=== PATIENT | female | born 1975 | race Hispanic/Latino ===

== ENCOUNTER 2017-03-23 21:26 | Observation (INO) | payer MEDICARE ==
[2017-03-23 21:27] VITALS: BMI 23.3
[2017-03-23 21:32] VITALS: BP 144/89; PULSE 80; RESP 16; TEMP 99; O2SAT 100
[2017-03-23] MEDS ORDERED: Sodium Chloride 0.9% 1,000 ML IV STA (21:55)
--- NOTE | 2017-03-23 21:58 | ED PDOC ---
HPI: Abdomen Time Seen by Provider: 03/23/17 21:47 Chief Complaint (Nursing): Abdominal Pain Chief Complaint (Provider): Abd pain History Per: Patient History/Exam Limitations: no limitations Onset/Duration Of Symptoms: Days (Today) Outside of [place] travel?: No Current Symptoms Are (Timing): Still Present Additional Complaint(s): Pt. with right flank pain going into right lower abd. Has urgency of urination , dysuria. No weakness, headaches, chest pain, dyspnea. Has nausea, vomit, nonbloody. No diarrhea. Dx with kidney stones last week and on motrin. Was doing well and then started getting pain today. Has hepatitis and seen by gi. Had US last that showed kidney stones. Past Medical History Reviewed: Nursing Documentation, Vital Signs Vital Signs: Last Vital Signs Temp 99.0 F 03/23/17 21:29 Pulse 80 03/23/17 21:29 Resp 16 03/23/17 21:29 BP 144/89 03/23/17 21:29 Pulse Ox 100 03/23/17 22:00 - Medical History PMH: Anxiety, Bipolar Disorder, Depression, Hyperthyroidism (as per ER), Hypothyroidism, Paranoia (pt states "people" are talking about her) Denies: Chronic Kidney Disease Other PMH: hepatitis - Surgical History Surgical History: Appendectomy - Family History Family History: States: Unknown Family Hx - Social History Current smoker - smoking cessation education provided: No Alcohol: None Drugs: Denies - Immunization History Hx Tetanus Toxoid Vaccination: No Hx Influenza Vaccination: No Hx Pneumococcal Vaccination: No - Home Medications Home Medications: Ambulatory Orders Medication Instructions Recorded Trazodone Hydrochloride 200 mg PO HS 05/13/12 Levothyroxine Sodium [Synthroid] 100 mcg PO DAILY 08/22/13 Sertraline [Zoloft] 200 mg PO DAILY 08/22/13 Levofloxacin [Levaquin] 500 mg PO DAILY #0 tablet 01/09/16 - Allergies Allergies/Adverse Reactions: Allergies Allergy/AdvReac Type Severity Reaction Status Date / Time lithium Allergy SWELLING Verified 01/07/16 12:18 Review of Systems ROS Statement: Except As Marked, All Systems Reviewed And Found Negative Constitutional: Positive for: Fever (feels it) Gastrointestinal: Positive for: Nausea, Vomiting, Abdominal Pain Genitourinary Female: Positive for: Dysuria Musculoskeletal: Positive for: Back Pain Physical Exam - Reviewed Nursing Documentation Reviewed: Yes Vital Signs Reviewed: Yes - Physical Exam Appears: Positive for: Non-toxic, No Acute Distress Head Exam: Positive for: ATRAUMATIC, NORMAL INSPECTION, NORMOCEPHALIC Skin: Positive for: Normal Color, Warm, DRY Eye Exam: Positive for: EOMI, Normal appearance, PERRL ENT: Positive for: Normal ENT Inspection Neck: Positive for: Normal, Painless ROM Cardiovascular/Chest: Positive for: Regular Rate, Rhythm Respiratory: Positive for: CNT, Normal Breath Sounds Gastrointestinal/Abdominal: Positive for: Bowel Sounds, Soft, Tenderness (RLQ mild). Negative for: Guarding Back: Positive for: Normal Inspection, R CVA Tenderness. Negative for: L CVA Tenderness Extremity: Positive for: Normal ROM. Negative for: Tenderness, Pedal Edema Neurologic/Psych: Positive for: Alert, Oriented - Laboratory Results Result Diagrams: 03/23/17 22:00 03/23/17 22:00 Interpretation Of Abn Labs: no acute - ECG O2 Sat by Pulse Oximetry: 100 Pulse Ox Interpretation: Normal - CT Scan/US ct Other Rad Studies (CT/US): Read By Radiologist Other Rad Interpretation: no acute findings; ovarian cyst - Progress ED Course And Treament: 2333: Stable. AAOx3. Pain controlled. Fu with pcp. Tolerated PO. Will tx for clinical uti findings. ED OBSERVATION Date of observation admission: 03/23/17 Time of observation admission: 21:56 - Observation admission statement Patient is being placed in observation because:: abd pain eval - Goals of Observation Goals of observation are:: ct and blood work. pain control. Disposition - Clinical Impression Clinical Impression: UTI (urinary tract infection), Abdominal pain, Ovarian cyst - Patient ED Disposition Is Patient to be Admitted: No Counseled Patient/Family Regarding: Studies Performed, Diagnosis, Need For Followup, Rx Given - Disposition Disposition: Routine/Home Disposition Time: 23:40 Condition: STABLE
[2017-03-23 22:26] LABS: BASO % 0.5 % (0.0-2.0); EOS # 0.1 K/uL (0.0-0.7); EOS % 0.7 % (0.0-4.0); HEMATOCRIT 35.7 % (34.0-47.0); LYMPH # 1.9 K/uL (1.0-4.3); LYMPH % 25.6 % (20.0-40.0); MEAN CELL VOLUME 87.4 fl (81.0-99.0); MEAN CORPUSCULAR HEMOGLOBIN 29.7 pg (27.0-31.0); MONO # 0.5 K/uL (0.0-0.8); MONO % 6.1 % (0.0-10.0); NEUT % 67.1 % (50.0-75.0); NRBC % 0.1 % (0.0-0.0); RED CELL DISTRIBUTION WIDTH 11.9 % (11.5-14.5); WHITE BLOOD COUNT 7.4 K/uL (4.8-10.8)
[2017-03-23 22:32] LABS: RBC URINE 4 /hpf (0-3); URINE BACTERIA RARE (<OCC); URINE BILIRUBIN NEGATIVE (NEGATIVE); URINE BLOOD NEGATIVE (NEGATIVE); URINE COLOR YELLOW (YELLOW); URINE GLUCOSE (UA) NEG (Normal); URINE KETONE NEGATIVE (NEGATIVE); URINE LEUKOCYTE ESTERASE NEG Leu/uL (Negative); URINE PROTEIN 30 mg/dL (NEGATIVE); URINE UROBILINOGEN 0.2-1.0 mg/dL (0.2-1.0); WBC URINE 4 /hpf (0-5)
[2017-03-23 22:35] LABS: ALB/GLOB RATIO 1.4 (1.0-2.1); ALKALINE PHOSPHATASE 52 U/L (38-126); ALT/SGPT 22 U/L (9-52); AST/SGOT 24 U/L (14-36); BILIRUBIN,TOTAL 0.3 mg/dl (0.2-1.3); BLOOD UREA NITROGEN 17 mg/dl (7-17); CALCIUM 9.2 mg/dL (8.4-10.2); CARBON DIOXIDE 25 mmol/L (22-30); CHLORIDE 104 mmol/L (98-107); GFR AFRICAN-AMERICAN > 60; GLUCOSE,RANDOM 90 mg/dL (65-105); POTASSIUM 4.1 MMOL/L (3.6-5.0); SODIUM 138 mmol/l (132-148)
--- NOTE | 2017-03-23 23:15 | CT ---
EXAM: CT Abdomen and Pelvis Without Intravenous Contrast CLINICAL HISTORY: 41 years old, female; Pain; Abdominal pain; Flank; Right; Prior surgery; Surgery date: 6+ months; Surgery type: Cholecystectomy umbilical hernia repair 2015. Appendectomy 1993. Hepatitis; Patient HX: Rt flank; Additional info: R/O stone TECHNIQUE: Axial computed tomography images of the abdomen and pelvis without intravenous contrast. This CT exam was performed using one or more of the following dose reduction techniques: automated exposure control, adjustment of the mA and/or kV according to patient size, and/or use of iterative reconstruction technique. Coronal and sagittal reformatted images were created and reviewed. COMPARISON: CT - ABD PELVIS PO IV CONTRAST 01/07/2016 7:59:10 PM FINDINGS: Lower thorax: Minimal atelectasis/scarring. ABDOMEN: Liver: Unremarkable. Gallbladder and bile ducts: Cholecystectomy. No ductal dilation. Pancreas: Unremarkable. No ductal dilation. Spleen: Too small to characterize lesion within spleen, stable. Adrenals: No mass. Kidneys and ureters: No renal calculi. No hydronephrosis. Stomach and bowel: No definite mural thickening. No obstruction. Appendix: No findings to suggest acute appendicitis. PELVIS: Bladder: Unremarkable. No stones. Reproductive: 2.1 x 1.9 x 2.1 cm hypodense lesion within RIGHT ovary. ABDOMEN and PELVIS: Intraperitoneal space: Trace free fluid within pelvis. No free air. Bones/joints: Degenerative changes of lower lumbar spine. No acute fracture. Soft tissues: Unremarkable. Vasculature: Unremarkable. No abdominal aortic aneurysm. Lymph nodes: No pathologically enlarged lymph nodes. IMPRESSION: 1. No CT evidence of urolithiasis. 2. Possible RIGHT ovarian cyst. Suggest ultrasound. 3. Incidental/non-acute findings are described above.
== END 2017-03-24 00:15 | disposition home or self-care (01) ==
LOC: H.ER 21:26 → H.EROBSV 21:55
PROVIDERS: ADMIT Emergency Medicine; ATTEND Emergency Medicine
DX: N39.0 Urinary tract infection, site not specified (principal); F31.9 Bipolar disorder, unspecified; E03.9 Hypothyroidism, unspecified; N83.209 Unspecified ovarian cyst, unspecified side; N20.0 Calculus of kidney; K75.9 Inflammatory liver disease, unspecified
CPT/HCPCS: 74176; 80053; 81003; 81025; 85025; 96360; 99282; G0378; J1885; J2270; J2405; J7040

== ENCOUNTER 2017-06-09 19:30 | Emergency (ER) | payer MEDICARE ==
[2017-06-09 19:31] VITALS: BMI 23.3
[2017-06-09 19:38] VITALS: BP 123/84; PULSE 94; RESP 18; TEMP 99.3; O2SAT 98
[2017-06-09] MEDS ORDERED: Sodium Chloride 0.9% 1,000 ML IV STA (20:04)
[2017-06-09] MEDS ORDERED: Morphine 4 MG/ML VIAL ONE ×2 (20:22→21:39)
[2017-06-09 20:31] LABS: BASO % 0.5 % (0.0-2.0); EOS % 0.4 % (0.0-4.0); HEMOGLOBIN 12.2 g/dL (12.0-16.0); LYMPH # 1.7 K/uL (1.0-4.3); LYMPH % 22.9 % (20.0-40.0); MEAN CELL VOLUME 86.8 fl (81.0-99.0); MEAN CORPUSCULAR HEMOGLOBIN 29.7 pg (27.0-31.0); MEAN CORPUSCULAR HGB CONC 34.2 g/dL (33.0-37.0); MEAN PLATELET VOLUME 8.4 fl (7.2-11.7); MONO # 0.4 K/uL (0.0-0.8); MONO % 5.4 % (0.0-10.0); NEUT # 5.3 K/uL (1.8-7.0); NEUT % 70.8 % (50.0-75.0); NRBC % 0.1 % (0.0-0.0); RBC 4.12 Mil/uL (3.80-5.20); RED CELL DISTRIBUTION WIDTH 12.8 % (11.5-14.5); WHITE BLOOD COUNT 7.4 K/uL (4.8-10.8)
[2017-06-09 20:40] LABS: ALB/GLOB RATIO 1.3 (1.0-2.1); ALBUMIN 4.1 g/dL (3.5-5.0); ALT/SGPT 30 U/L (9-52); AST/SGOT 21 U/L (14-36); BLOOD UREA NITROGEN 11 mg/dl (7-17); CALCIUM 9.1 mg/dL (8.4-10.2); GFR AFRICAN-AMERICAN > 60; GFR NON-AFRICAN AMERICAN > 60
--- NOTE | 2017-06-09 20:44 | ED PDOC ---
HPI: Abdomen Time Seen by Provider: 06/09/17 19:35 Chief Complaint (Nursing): Abdominal Pain Chief Complaint (Provider): Abdominal Pain History Per: Patient History/Exam Limitations: no limitations Onset/Duration Of Symptoms: Days (x1 week) Current Symptoms Are (Timing): Still Present Additional Complaint(s): Jodie Moncada is a 41 year old female with previous medical history of hypothyroidism, depression, alcoholism and kidney stones, who presents to the emergency department with a complaint of right upper back pain associated with nausea, vomiting, and diarrhea ongoing for 1 week. Denied any fever, chill, dysuria or hematuria. Patient stated she took Motrin several times with no relief of symptoms. PMD: [facility] Past Medical History Reviewed: Historical Data, Nursing Documentation, Vital Signs Vital Signs: Last Vital Signs Temp 99.3 F 06/09/17 19:34 Pulse 94 H 06/09/17 19:34 Resp 18 06/09/17 19:34 BP 123/84 06/09/17 19:34 Pulse Ox 98 06/09/17 23:32 - Medical History PMH: Anxiety, Bipolar Disorder, Depression, Hyperlipidemia, Hyperthyroidism (as per ER), Hypothyroidism, Paranoia (pt states "people" are talking about her) Denies: Chronic Kidney Disease - Surgical History Surgical History: Appendectomy, Cholecystectomy, Hernia Repair - Family History Family History: States: Unknown Family Hx - Social History Current smoker - smoking cessation education provided: No Ex-Smoker (has not smoked in the last 12 months): Yes Alcohol: Occasional - Immunization History Hx Tetanus Toxoid Vaccination: No Hx Influenza Vaccination: No Hx Pneumococcal Vaccination: No - Home Medications Home Medications: Ambulatory Orders Medication Instructions Recorded Trazodone Hydrochloride 200 mg PO HS 05/13/12 Levothyroxine Sodium [Synthroid] 100 mcg PO DAILY 08/22/13 Sertraline [Zoloft] 200 mg PO DAILY 08/22/13 Levofloxacin [Levaquin] 500 mg PO DAILY #0 tablet 01/09/16 Ciprofloxacin HCl [Cipro] 500 mg PO BID 7 Days 03/23/17 Ibuprofen [Motrin] 600 mg PO TID 7 Days 03/23/17 - Allergies Allergies/Adverse Reactions: Allergies Allergy/AdvReac Type Severity Reaction Status Date / Time lithium Allergy SWELLING Verified 06/09/17 19:33 Review of Systems ROS Statement: Except As Marked, All Systems Reviewed And Found Negative Constitutional: Negative for: Fever, Chills Gastrointestinal: Positive for: Nausea, Vomiting, Diarrhea Genitourinary Female: Negative for: Dysuria, Hematuria Musculoskeletal: Positive for: Back Pain (right upper region) Physical Exam - Reviewed Nursing Documentation Reviewed: Yes Vital Signs Reviewed: Yes - Physical Exam Appears: Positive for: Well, Non-toxic, No Acute Distress Head Exam: Positive for: ATRAUMATIC, NORMAL INSPECTION, NORMOCEPHALIC Skin: Positive for: Normal Color Cardiovascular/Chest: Positive for: Regular Rate, Rhythm. Negative for: Chest Non Tender Respiratory: Positive for: Normal Breath Sounds. Negative for: Respiratory Distress Back: Positive for: Normal Inspection. Negative for: L CVA Tenderness, R CVA Tenderness Extremity: Positive for: Normal ROM. Negative for: Pedal Edema, Deformity Neurologic/Psych: Positive for: Alert, epic director II-XII, Oriented - Laboratory Results Result Diagrams: 06/09/17 20:26 06/09/17 20:26 - ECG O2 Sat by Pulse Oximetry: 98 (RA) Pulse Ox Interpretation: Normal Medical Decision Making Medical Decision Making: Initial Impression: Back pain Initial Plan: * Labs * Morphine 4mg IV * NS 1,000ml IV per 200mls/hr * Zofran 4mg IV * Urine C&S * Urinalysis * Re-evaluation Time: 23:16 CT Abdomen/Pelvis without contrast: FINDINGS: Lower thorax: The bilateral lung bases are clear. Persistent elevation of the right hemidiaphragm. ABDOMEN: Liver: The liver is enlarged. Gallbladder and bile ducts: The gallbladder is surgically absent. No intra- extrahepatic biliary ductal dilation. Pancreas: Limited evaluation secondary to the lack of intravenous contrast. Spleen: No acute findings. Adrenals: No acute findings. Kidneys and ureters: No obstructing stones. No hydronephrosis. PELVIS: Bladder: No acute findings. Reproductive: No acute findings. Appendix: Surgically absent. ABDOMEN and PELVIS: Stomach and bowel: No acute findings. Peritoneum: No acute findings. Lymph nodes: Limited evaluation without intravenous contrast. Vasculature: No aortic aneurysm. Bones: No acute fracture. IMPRESSION: No obstructive uropathy. Persistent hepatomegaly. Time: 23:25 --Labs reviewed and results are wnl, urine is negative --Patient aware of hepatomegaly. Time: 23:30 Clinical Impression: Abdominal discomfort Upon provider reevaluation patient is feeling better, medically stable, and requires no further treatment in the ED at this time. Patient will be discharged home. Counseling was provided and all questions were answered regarding diagnosis and need for follow up with PMD in 1-2 days. There is agreement to discharge plan. Return if symptoms persist or worsen. Scribe Attestation: Documented by Peggy Mukherjee, acting as a scribe for Randall Vargas MD. Provider Scribe Attestation: All medical record entries made by the Scribe were at my direction and personally dictated by me. I have reviewed the chart and agree that the record accurately reflects my personal performance of the history, physical exam, medical decision making, and the department course for this patient. I have also personally directed, reviewed, and agree with the discharge instructions and disposition. Disposition - Clinical Impression Clinical Impression: Abdominal discomfort - Patient ED Disposition Is Patient to be Admitted: No Doctor Will See Patient In The: Office Counseled Patient/Family Regarding: Studies Performed, Diagnosis, Need For Followup - Disposition Referrals: [facility] [Outside] [facility] [Outside] Disposition: Routine/Home Disposition Time: 21:00 Condition: IMPROVED Additional Instructions: follow up with your primary doctor in 1-2 days return to the ED with any worsening or concerning symptoms. Instructions: Abdominal Pain (ED) Forms: [employer] (Latvian)
[2017-06-09 20:59] LABS: SQUAMOUS EPITHIAL 18 /hpf (0-5); URINE BACTERIA RARE (<OCC); URINE BILIRUBIN NEGATIVE (NEGATIVE); URINE BLOOD NEGATIVE (NEGATIVE); URINE CLARITY CLOUDY (Clear); URINE COLOR YELLOW (YELLOW); URINE GLUCOSE (UA) NEG (Normal); URINE LEUKOCYTE ESTERASE NEG Leu/uL (Negative); URINE NITRATE NEGATIVE (NEGATIVE); URINE PROTEIN NEGATIVE (NEGATIVE); URINE UROBILINOGEN 0.2-1.0 mg/dL (0.2-1.0)
[2017-06-09] MEDS ORDERED: Morphine 4 MG/ML VIAL IV ONE (21:38)
--- NOTE | 2017-06-09 23:17 | CT ---
EXAM: CT Abdomen and Pelvis Without Intravenous Contrast CLINICAL HISTORY: 41 years old, female; Pain; Abdominal pain; Flank; Right; Prior surgery; Surgery date: 6+ months; Surgery type: Gall bladder removal. Appendix removed. Umbilical hernia repair; Additional info: Flank pain TECHNIQUE: Axial computed tomography images of the abdomen and pelvis without intravenous contrast. All CT scans at this facility use one or more dose reduction techniques, viz.: automated exposure control; ma/kV adjustment per patient size (including targeted exams where dose is matched to indication; i.e. head); or iterative reconstruction technique. Coronal and sagittal reformatted images were created and reviewed. COMPARISON: CT - ABD PELVIS W/O PO OR IV CONT 03/23/2017 10:41:45 PM FINDINGS: Lower thorax: The bilateral lung bases are clear. Persistent elevation of the right hemidiaphragm. ABDOMEN: Liver: The liver is enlarged. Gallbladder and bile ducts: The gallbladder is surgically absent. No intra-extrahepatic biliary ductal dilation. Pancreas: Limited evaluation secondary to the lack of intravenous contrast. Spleen: No acute findings. Adrenals: No acute findings. Kidneys and ureters: No obstructing stones. No hydronephrosis. PELVIS: Bladder: No acute findings. Reproductive: No acute findings. Appendix: Surgically absent. ABDOMEN and PELVIS: Stomach and bowel: No acute findings. Peritoneum: No acute findings. Lymph nodes: Limited evaluation without intravenous contrast. Vasculature: No aortic aneurysm. Bones: No acute fracture. IMPRESSION: No obstructive uropathy. Persistent hepatomegaly.
== END 2017-06-09 23:48 | disposition home or self-care (01) ==
LOC: H.ER 19:30
DX: R10.9 Unspecified abdominal pain (principal); E03.9 Hypothyroidism, unspecified
CPT/HCPCS: 74176; 80053; 81003; 81025; 85025; 87086; 96374; 99282; J1170; J2270; J2405; J7040

== ENCOUNTER 2017-11-21 19:22 | Emergency (ER) | payer MEDICARE ==
[2017-11-21 19:22] VITALS: BMI 23.3
[2017-11-21 19:45] VITALS: BP 129/80; PULSE 85; RESP 16; TEMP 98; O2SAT 100
[2017-11-21 20:38] LABS: BASO # 0.1 K/uL (0.0-0.2); BASO % 0.7 % (0.0-2.0); EOS % 0.3 % (0.0-4.0); HEMOGLOBIN 12.5 g/dL (12.0-16.0); MEAN CELL VOLUME 90.6 fl (81.0-99.0); MEAN CORPUSCULAR HEMOGLOBIN 30.5 pg (27.0-31.0); MEAN CORPUSCULAR HGB CONC 33.7 g/dL (33.0-37.0); MEAN PLATELET VOLUME 8.4 fl (7.2-11.7); MONO # 0.4 K/uL (0.0-0.8); MONO % 4.3 % (0.0-10.0); NEUT # 7.4 K/uL (1.8-7.0); NEUT % 74.7 % (50.0-75.0); NRBC % 0.1 % (0.0-0.0); RBC 4.1 Mil/uL (3.80-5.20); RED CELL DISTRIBUTION WIDTH 13.1 % (11.5-14.5)
[2017-11-21 20:45] LABS: ALB/GLOB RATIO 1.2 (1.0-2.1); ALBUMIN 4.3 g/dL (3.5-5.0); ALT/SGPT 29 U/L (9-52); AST/SGOT 21 U/L (14-36); BLOOD UREA NITROGEN 17 mg/dl (7-17); CALCIUM 9.5 mg/dL (8.4-10.2); GFR AFRICAN-AMERICAN > 60; GFR NON-AFRICAN AMERICAN > 60
[2017-11-21 20:46] LABS: SQUAMOUS EPITHIAL 3 /hpf (0-5); URINE BACTERIA RARE (<OCC); URINE BILIRUBIN NEGATIVE (NEGATIVE); URINE BLOOD NEGATIVE (NEGATIVE); URINE CLARITY CLOUDY (Clear); URINE COLOR YELLOW (YELLOW); URINE GLUCOSE (UA) NEG (Normal); URINE LEUKOCYTE ESTERASE TRACE Leu/uL (Negative); URINE NITRATE NEGATIVE (NEGATIVE); URINE PROTEIN 30 mg/dL (NEGATIVE)
--- NOTE | 2017-11-21 21:09 | ED PDOC ---
HPI: General Adult Time Seen by Provider: 11/21/17 20:01 Chief Complaint (Nursing): Chest Pain Chief Complaint (Provider): Chest Pain History Per: Patient History/Exam Limitations: no limitations Onset/Duration Of Symptoms: Days (x 2) Current Symptoms Are (Timing): Still Present Additional Complaint(s): Jodie is a 42 year old, female (G-3/P-2/A-0) x 5 weeks who presents to the emergency department complaining of right calf pain and abdominal pain for 2 days. Patient reports intermittent right calf pain associated with shortness of breath for the past 2 days. Reports chest tightness and anxious about recent . Denies fever, cough, nausea, vomiting or diarrhea. Patient reports mild lower abdominal discomfort, but no vaginal bleeding. PMD: Dr. 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 Arcos in [place] Past Medical History Reviewed: Historical Data, Nursing Documentation, Vital Signs Vital Signs: Last Vital Signs Temp 98.0 F 11/21/17 19:41 Pulse 85 11/21/17 19:41 Resp 16 11/21/17 19:41 BP 129/80 11/21/17 19:41 Pulse Ox 100 11/21/17 22:59 - Medical History PMH: Anxiety, Bipolar Disorder, Depression, Hyperlipidemia, Hypothyroidism, Kidney Stones, Paranoia (pt states "people" are talking about her), Chronic Kidney Disease Comment Only: Hyperthyroidism (as per ER) - Surgical History Surgical History: Appendectomy, Cholecystectomy, Hernia Repair - Family History Family History: States: Unknown Family Hx - Social History Current smoker - smoking cessation education provided: No Alcohol: Occasional Drugs: Denies ((+): has history) - Immunization History Hx Tetanus Toxoid Vaccination: No Hx Influenza Vaccination: No Hx Pneumococcal Vaccination: No - Home Medications Home Medications: Ambulatory Orders Medication Instructions Recorded Trazodone Hydrochloride 200 mg PO HS 05/13/12 Levothyroxine Sodium [Synthroid] 100 mcg PO DAILY 08/22/13 Sertraline [Zoloft] 200 mg PO DAILY 08/22/13 Levofloxacin [Levaquin] 500 mg PO DAILY #0 tablet 01/09/16 Ciprofloxacin HCl [Cipro] 500 mg PO BID 7 Days tab 03/23/17 Ibuprofen [Motrin] 600 mg PO TID 7 Days tab 03/23/17 Cyclobenzaprine [Cyclobenzaprine 10 mg PO BID #14 tab 11/06/17 HCl] Ibuprofen [Motrin] 600 mg PO TID #21 tab 09/01/17 - Allergies Allergies/Adverse Reactions: Allergies Allergy/AdvReac Type Severity Reaction Status Date / Time lithium Allergy SWELLING Verified 11/21/17 19:41 Review of Systems ROS Statement: Except As Marked, All Systems Reviewed And Found Negative Constitutional: Negative for: Fever Cardiovascular: Positive for: Other (Chest tightness) Respiratory: Positive for: Shortness of Breath. Negative for: Cough Gastrointestinal: Positive for: Abdominal Pain. Negative for: Nausea, Vomiting , Diarrhea Genitourinary Female: Negative for: Vaginal Bleeding Musculoskeletal: Positive for: Other (Intermittent right calf pain) Psych: Positive for: Anxiety Physical Exam - Reviewed Nursing Documentation Reviewed: Yes Vital Signs Reviewed: Yes - Physical Exam Appears: Positive for: Non-toxic Head Exam: Positive for: ATRAUMATIC, NORMAL INSPECTION, NORMOCEPHALIC Skin: Positive for: Normal Color, Warm, Dry Eye Exam: Positive for: Normal appearance, EOMI, PERRL ENT: Positive for: Normal ENT Inspection. Negative for: Pharyngeal Erythema, Tonsillar Exudate Neck: Positive for: Normal, Supple Cardiovascular/Chest: Positive for: Regular Rate, Rhythm Respiratory: Positive for: Normal Breath Sounds. Negative for: Respiratory Distress Gastrointestinal/Abdominal: Positive for: Normal Exam, Soft. Negative for: Tenderness Back: Positive for: Normal Inspection Extremity: Positive for: Normal ROM. Negative for: Deformity Neurologic/Psych: Positive for: Alert, Oriented (x 3). Negative for: Motor/ Sensory Deficits - Laboratory Results Result Diagrams: 11/21/17 20:30 11/21/17 20:30 Urine POC: Positive - ECG O2 Sat by Pulse Oximetry: 100 (RA) Pulse Ox Interpretation: Normal Medical Decision Making Medical Decision Making: Time: 20:03 Impression: 42 year old female with calf pain and non-specific abdominal pain; signs of early Plan: - Beta-hCG, Quantitative - CMP - ED Urinary - ED Urine Dipstick - CBC - Urinalysis - Duplex Lower Extremity Vein Right Ultrasound - OB , Limited Ultrasound Time: 22:33 OB , Limited Ultrasound FINDINGS: Uterus: Measures 11.2 x 5.1 x 6.1 cm. Small, round cystic area this is seen in within the endometrium, measuring 1.12 x 0.75 x 1.09 cm. This most likely represents an early intrauterine gestational sac. However, there is no internal pole or yolk sac identified. If this is a gestational sac, it would correspond to an estimated gestational age of less than 5 weeks, based on a mean gestational sac diameter of 9.9 mm. Right ovary: Within normal limits in appearance. Measures 2.1 x 1.3 x 2.0 cm. Flow seen in the right ovary on Doppler imaging, with no evidence of torsion. Left ovary: Within normal limits in appearance. Measures 2.7 x 2.3 x 2.4 cm. Flow seen in the left ovary on Doppler imaging, with no evidence of torsion. Cul-de-sac: No free fluid. IMPRESSION: Small, round, cystic area seen within the endometrium, which most likely represents an early (less than 5 week) intrauterine gestational sac. However, there is no pole or yolk sac identified. Note that an ectopic gestation associated with a pseudo-sac is not entirely excluded in this patient. Recommend clinical correlation and close clinical followup, including a follow up ultrasound to confirm an IUP. Time: 22:24 Duplex Lower Extremity Vein Right Ultrasound FINDINGS: Normal-appearing compressibility, flow and augmentation response are seen in the right common femoral, femoral and popliteal veins. Flow is seen in the right posterior tibial vein. IMPRESSION: No evidence of deep venous thrombosis in the right leg. Labs reviewed. No clinical abnormalities. Patient was advised to follow up with Dr. Arcos ([facility]). Diagnosis is abdominal pain during and right lower extremity pain. Scribe Attestation: Documented by Guanaco Mitchell, acting as a scribe for Jessee Youngblood MD Provider Scribe Attestation: All medical record entries made by the Scribe were at my direction and personally dictated by me. I have reviewed the chart and agree that the record accurately reflects my personal performance of the history, physical exam, medical decision making, and the department course for this patient. I have also personally directed, reviewed, and agree with the discharge instructions and disposition. Disposition - Clinical Impression Clinical Impression: Abdominal pain during - Patient ED Disposition Is Patient to be Admitted: No - Disposition Disposition: Routine/Home Disposition Time: 22:25 Condition: STABLE Instructions: Abdominal Pain in (ED) Forms: [employer] (Ecuadorean)
--- NOTE | 2017-11-21 22:24 | US ---
EXAM: US Duplex Right Lower Extremity Veins EXAM DATE/TIME: 11/21/2017 8:25 PM CLINICAL HISTORY: 42 years old, female; Pain; Leg, lower; Right; Additional info: Possible dvt TECHNIQUE: Real-time ultrasound scan of the veins of the right lower extremity with color Doppler flow, spectral waveform analysis and compression. COMPARISON: No relevant prior studies available. FINDINGS: Normal-appearing compressibility, flow and augmentation response are seen in the right common femoral, femoral and popliteal veins. Flow is seen in the right posterior tibial vein. IMPRESSION: No evidence of deep venous thrombosis in the right leg.
--- NOTE | 2017-11-21 22:33 | US ---
EXAM: US First Trimester, Transabdominal EXAM DATE/TIME: 11/21/2017 8:06 PM CLINICAL HISTORY: 42 years old, female; lmp: 10/14/17, abdominal pain in ,Patient's quantitative beta-hCG level is reportedly 6136. TECHNIQUE: Real-time transabdominal obstetrical ultrasound of the maternal pelvis and a first trimester with image documentation. COMPARISON: No relevant prior studies available. FINDINGS: Uterus: Measures 11.2 x 5.1 x 6.1 cm. Small, round cystic area this is seen in within the endometrium, measuring 1.12 x 0.75 x 1.09 cm. This most likely represents an early intrauterine gestational sac. However, there is no internal pole or yolk sac identified. If this is a gestational sac, it would correspond to an estimated gestational age of less than 5 weeks, based on a mean gestational sac diameter of 9.9 mm. Right ovary: Within normal limits in appearance. Measures 2.1 x 1.3 x 2.0 cm. Flow seen in the right ovary on Doppler imaging, with no evidence of torsion. Left ovary: Within normal limits in appearance. Measures 2.7 x 2.3 x 2.4 cm. Flow seen in the left ovary on Doppler imaging, with no evidence of torsion. Cul-de-sac: No free fluid. IMPRESSION: Small, round, cystic area seen within the endometrium, which most likely represents an early (less than 5 week) intrauterine gestational sac. However, there is no pole or yolk sac identified. Note that an ectopic gestation associated with a pseudo-sac is not entirely excluded in this patient. Recommend clinical correlation and close clinical followup, including a follow up ultrasound to confirm an IUP. See above for remaining findings.
== END 2017-11-21 23:03 | disposition home or self-care (01) ==
LOC: H.ER 19:22
DX: O26.891 Other specified pregnancy related conditions, first trimester (principal); M79.606 Pain in leg, unspecified; F41.9 Anxiety disorder, unspecified; F31.9 Bipolar disorder, unspecified; Z3A.01 Less than 8 weeks gestation of pregnancy; Z87.442 Personal history of urinary calculi; E03.9 Hypothyroidism, unspecified; E05.90 Thyrotoxicosis, unspecified without thyrotoxic crisis or storm; E78.5 Hyperlipidemia, unspecified